=== PATIENT | male | born 1985 | race Caucasian/White ===

== ENCOUNTER 2018-12-10 11:30 | Emergency (ER) | payer MEDICAID ==
[2018-12-10 13:13] LABS: ADD UMIC NO; UR ASCORBIC ACID NEGATIVE (NEGATIVE); UR BILIRUBIN (Dip) NEGATIVE (NEGATIVE); UR BLOOD (Dip) NEGATIVE (NEGATIVE); UR CLARITY CLEAR (CLEAR); UR COLOR YELLOW (YELLOW); UR GLUCOSE (Dip) NEGATIVE (NEGATIVE); UR KETONES (Dip) NEGATIVE (NEGATIVE); UR LEUKOCYTE ESTERASE (Dip) NEGATIVE Leu/ul (NEGATIVE); UR NITRITE (Dip) NEGATIVE (NEGATIVE); UR TOTAL PROTEIN (Dip) NEGATIVE (NEGATIVE); UR UROBILINOGEN (Dip) NEGATIVE (NEGATIVE)
== END 2018-12-10 14:41 | disposition home or self-care (01) ==
LOC: FTE 11:30
DX: R05 Cough (principal); R30.0 Dysuria
CPT/HCPCS: 81003; 87086; 99283

== ENCOUNTER 2019-04-03 16:07 | Emergency (ER) | payer MEDICAID | END 2019-04-03 19:13 | disposition home or self-care (01) | LOC: FTE 16:07 | DX: K21.9 Gastro-esophageal reflux disease without esophagitis (principal) | CPT/HCPCS: 82962; 93005; 99283-25 ==